=== PATIENT | female | born 1995 | race Caucasian/White ===

== ENCOUNTER 2017-06-26 20:19 | Emergency (ER) | payer MEDICAID ==
[2017-06-26 20:24] VITALS: BP 116/85; PULSE 106; RESP 16; TEMP 98.2; O2SAT 96
--- NOTE | 2017-06-26 20:32 | EDPHY ---
H & P Stated Complaint: L sided tooth pain Time Seen by Provider: 06/26/17 20:40 HPI/ROS: HPI: This is a 22-year-old female presents with Chief Complaint:L sided tooth pain Location: Left upper molar Quality: Pain Duration: 2 months Signs and Symptoms: No fever, no jaw swelling, no trismus, no ear pain, no difficulty swallowing, no difficulty talking,+ sensitivity to hot and cold foods Timing: Chronic Severity: Moderate Context: Patient recently moved to [facility] from [place] within the last 2 months. She reports that she has had left upper tooth crack that was recommend that she read obtain a root canal but she put it off. She now presents with complaints of left upper tooth pain that has worsened over the last 2 days, pain is now constant and severe. Still able to drink fluids and eat on the opposite side of her mouth. She has no dentist in the area. Positive tobacco user Modifying Factors: none Comment: ROS: see HPI Constitutional: No fever, no chills, no weight loss Eyes: No blurred vision Respiratory: No shortness of breath, no cough Cardiovascular: No chest pain Gastrointestinal: No nausea, no vomiting, no diarrhea Genitourinary: No dysuria Extremities: No myalgias Neurologic: No weakness, no numbness Skin: No rashes Hematologic: No bruising, no bleeding MEDICAL/SURGICAL/SOCIAL HISTORY: Medical history: ADD, transgender. Surgical history: Denies Social history: Recently moved from [place] CONSTITUTIONAL: Well-developed well-nourished nontoxic-appearing, awake and alert, no obvious distress HEENT: Atraumatic and normocephalic, PERRL, EOMI. Tympanic membranes clear. Oropharynx clear, tooth 16 visible blackening/decay; no jaw swelling. no exudate and moist pink mucosa. Airway patent. No lymphadenopathy. No meningismus. Cardiovascular: Normal S1/S2, regular rate, regular rhythm, without murmur rub or gallop. PULMONARY/CHEST: Symmetrical and nontender. Clear to auscultation bilaterally. Good air movement. No accessory muscle usage. ABDOMEN: Soft, nondistended, nontender, no rebound, no guarding, no peritoneal signs, no masses or organomegaly. No CVAT. EXTREMITIES: 2/2 pulses, strength 5/5, no deformities, no clubbing, no cyanosis or edema. NEUROLOGICAL: no focal neuro deficits. GCS 15. SKIN: Warm and dry, no erythema. no rash. Good capillary refill. Source: Patient Exam Limitations: No limitations - Personal History Current Tetanus/Diphtheria Vaccine: Yes Current Tetanus Diphtheria and Acellular Pertussis (TDAP): Yes - Medical/Surgical History Hx Asthma: No Hx Chronic Respiratory Disease: No Hx Diabetes: No Hx Cardiac Disease: No Hx Renal Disease: No Hx Cirrhosis: No Hx Alcoholism: No Hx HIV/AIDS: No Hx Splenectomy or Spleen Trauma: No Other PMH: add, transgender - Social History Smoking Status: Light smoker Constitutional: Initial Vital Signs Temperature (C) 36.8 C 06/26/17 20:21 Heart Rate 106 H 06/26/17 20:21 Respiratory Rate 16 06/26/17 20:21 Blood Pressure 116/85 H 06/26/17 20:21 O2 Sat (%) 96 06/26/17 20:21 O2 Delivery Mode Room Air Allergies/Adverse Reactions: No Known Allergies Allergy (Unverified 06/26/17 20:24) Home Medications: Medication Instructions Recorded Penicillin V Potassium [Penicillin 500 mg PO Q6 #28 tab 06/26/17 VK] Medical Decision Making Procedures: Procedure: Dental block Verbal consent was obtained from the patient. The #16 tooth was anesthetized in the usual fashion using 3 mL of bupivacaine 0.5% into the buccal mucosa. There were no deep structures involved. Patient tolerated the procedure well and localized immediate relief of pain. The procedure was performed by myself. ED Course/Re-evaluation: No signs of facial cellulitis/periapical abscess/dehydration Local dental block performed with complete relief of pain Given penicillin for antibiotic prophylaxis Advised to follow up with dentist MELISSA Patient's presentation, labs, plan of care were reviewed with primary supervising physician. Differential Diagnosis: Differential diagnosis includes but is not limited to tooth fracture, tooth subluxation, dental caries, periapical abscess. Departure - Departure Disposition: Home, Routine, Self-Care Clinical Impression: Odontalgia Condition: Good Instructions: Dental Caries (ED), Toothache (ED) Referrals: [facility],. [Clinic] - As per Instructions Tor Martin DMD [Doctor of Dental Surgery] - 2-3 days, call for appt. Prescriptions: Penicillin V Potassium [Penicillin VK] 500 mg PO Q6 #28 tab
[2017-06-26] MEDS ORDERED: PENICILLIN VK 250MG PREPACK#6 BTL TAKEHOME ONE (20:39)
== END 2017-06-26 21:13 | disposition home or self-care (01) ==
PROC: 3E0X3BZ Introduction of Anesthetic Agent into Cranial Nerves, Percutaneous Approach (ICD-10-PCS; principal; 2017-06-26)
DX: K08.89 Other specified disorders of teeth and supporting structures (principal); F17.200 Nicotine dependence, unspecified, uncomplicated

== ENCOUNTER 2017-08-18 13:36 | Emergency (ER) | payer MEDICAID ==
--- NOTE | 2017-08-18 14:14 | EDPHY ---
H & P Time Seen by Provider: 08/18/17 14:06 HPI/ROS: CHIEF COMPLAINT: Bilateral calf pain HISTORY OF PRESENT ILLNESS: The patient is a 22 y/o transgender female complaining of bilateral calf pain since this morning. The pain is moderate and increases with movement and with walking. The pain is greater in the left calf than the right. She is currently on Estradiol. Admits to occasional tobacco use. Denies history of DVT' s or PE's, very concerned about blood clot. Denies recent trauma or injury, shortness of breath, fever, numbness, paresthesia or other pertinent symptoms. REVIEW OF SYSTEMS: Aside from elements discussed in the HPI, a comprehensive 10-point review of systems was reviewed and is negative. Past Medical/Surgical History: Transgender, ADD Social History: Student at , lives in [place], occasional tobacco use Smoking Status: Current some day smoker Physical Exam: General Appearance: Alert, pleasant Eyes: Pupils equal and round ENT, Mouth: Mucous membranes moist Neck: Normal inspection Respiratory: Lungs are clear to auscultation Cardiovascular: Regular rate and rhythm Gastrointestinal: Abdomen is soft and non-tender Neurological: A&O, nonfocal exam Skin: Warm and dry Extremities: Bilateral calf tenderness without swelling, pedal pulses 2+ Psychiatric: Mood and affect normal Constitutional: Initial Vital Signs Temperature (C) 36.0 C 08/18/17 13:37 Heart Rate 106 H 08/18/17 13:37 Respiratory Rate 18 08/18/17 13:37 Blood Pressure 107/76 08/18/17 13:37 O2 Sat (%) 97 08/18/17 13:37 O2 Delivery Mode Room Air Allergies/Adverse Reactions: No Known Allergies Allergy (Unverified 06/26/17 20:24) Home Medications: Medication Instructions Recorded Dextroamphetamine Sulfate 08/18/17 Estradiol 08/18/17 Spironolactone 08/18/17 Medical Decision Making - Diagnostics Imaging Results: Imaging Impressions Extremity Venous Study 08/18/17 14:14 Impression: No evidence of deep vein thrombosis in the lower extremities. Findings called to the ER 08/18/2017 at 15:11. Imaging: Discussed imaging studies w/ magnesium mill operator Radiologist ED Course/Re-evaluation: The patient is a 22 y/o transgender female presenting with bilateral calf pain. She is quite concerned she has a DVT due to being on Estradiol. She has requested that a bilateral LE US be preformed. 1519: Spoke with radiologist, patient's US is negative for a DVT. 1524: Reassessed patient and discussed negative imaging findings. Return precautions provided; patient is comfortable with this plan. Differential Diagnosis: Differential diagnosis includes though it is not limited to cellulitis, superficial thrombophlebitis, DVT, muscular strain. Departure - Departure Disposition: Home, Routine, Self-Care Clinical Impression: Bilateral calf pain Condition: Good Instructions: Leg Pain (ED) Additional Instructions: Take ibuprofen, 600mg every 6-8 hours with food, as needed for pain. Follow up with your primary care physician in the next week for unimproved symptoms. Return to the emergency department if you develop chest pain, shortness of breath, fever, weakness, numbness or other worsening of your symptoms. Referrals: [facility],. [Clinic] - As per Instructions Report Scribed for: Delilah Campbell Report Scribed by: Staci Yarbrough Date of Report: 08/18/17 Time of Report: 14:15 Physician Review and Approval Statement: 08/18/17 14:15 Portions of this note were transcribed by a medical associate. I personally performed a history, physical exam, medical decision making, and confirmed accuracy of information the transcribed note.
[2017-08-18 15:27] VITALS: BP 101/63; PULSE 88; RESP 16; TEMP 97.5; O2SAT 96
== END 2017-08-18 15:35 | disposition home or self-care (01) ==
DX: M79.604 Pain in right leg (principal); M79.605 Pain in left leg; F17.200 Nicotine dependence, unspecified, uncomplicated

== ENCOUNTER 2017-08-25 23:41 | Emergency (ER) | payer MEDICAID ==
[2017-08-25 23:47] VITALS: BP 116/80; PULSE 103; RESP 16; TEMP 98.1; O2SAT 92
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
== END 2017-08-26 00:50 | disposition home or self-care (01) ==
DX: S06.0X1A Concussion with loss of consciousness of 30 minutes or less, initial encounter (principal); Z87.891 Personal history of nicotine dependence; V18.2XXA Unspecified pedal cyclist injured in noncollision transport accident in nontraffic accident, initial encounter; Y92.410 Unspecified street and highway as the place of occurrence of the external cause; Y93.55 Activity, bike riding

== ENCOUNTER 2017-09-05 21:10 | Emergency (ER) | payer OTHER, MEDICAID ==
--- NOTE | 2017-09-05 22:26 | EDPHY ---
H & P Stated Complaint: "I need STD testing" Pt denies symptoms HPI/ROS: Chief complaint: STD testing History of present illness: This is a 22-year-old transgender female who presents to the emergency department requesting STD testing. She states she needs testing for work. She recently had HIV testing which was negative. But she needs testing for everything else. She denies any recent exposure. She denies any signs or symptoms. - Personal History Current Tetanus/Diphtheria Vaccine: Yes Current Tetanus Diphtheria and Acellular Pertussis (TDAP): Yes - Medical/Surgical History Hx Asthma: No Hx Chronic Respiratory Disease: No Hx Diabetes: No Hx Cardiac Disease: No Hx Renal Disease: No Hx Cirrhosis: No Hx Alcoholism: No Hx HIV/AIDS: No Hx Splenectomy or Spleen Trauma: No Other PMH: add, transgender - Social History Smoking Status: Former smoker - Physical Exam Exam: General Appearance: Alert, nontoxic. Eyes: Pupils equal and round no injection. Respiratory: Chest is non tender, lungs are clear to auscultation. Cardiac: regular rate and rhythm Gastrointestinal: Abdomen is soft and non tender, no masses, bowel sounds normal. Musculoskeletal: Neck is supple and non tender. Extremities have full range of motion and are non tender. Skin: No rashes or lesions. Neurological: Alert and oriented x4. Constitutional: Initial Vital Signs Temperature (C) 36.5 C 09/05/17 21:19 Heart Rate 89 09/05/17 21:19 Respiratory Rate 16 09/05/17 21:19 Blood Pressure 112/93 H 09/05/17 21:19 O2 Sat (%) 99 09/05/17 21:19 O2 Delivery Mode Room Air Allergies/Adverse Reactions: No Known Allergies Allergy (Verified 09/05/17 21:22) Home Medications: Medication Instructions Recorded Estradiol 08/18/17 Spironolactone 08/18/17 Medical Decision Making ED Course/Re-evaluation: Patient is seen under the supervision of my secondary supervising physician Dr. Juan Miguel Leung. Patient presents to the emergency department requesting STD testing. No recent exposure or signs or symptoms. I have discussed I can order basic testing. The patient is responsible for following up on the results , patient voiced understanding and will contact the hospital in 2-3 days for results. Departure - Departure Disposition: Home, Routine, Self-Care Clinical Impression: Possible exposure to STD Condition: Good Instructions: Sexually Transmitted Diseases (ED) Additional Instructions: Please follow-up with a primary care doctor for recheck You were tested for gonorrhea, chlamydia, syphilis and herpes this evening. We did not test for HIV. You will need to follow up this week for the results of your test with this hospital. We recommend maintaining safe sex practices If you develops any concerning symptoms return to the emergency room Referrals: NONE *PRIMARY CARE P,. [Primary Care Provider] - As per Instructions [facility],. [Clinic] - As per Instructions
[2017-09-05 22:49] VITALS: BP 123/87; PULSE 91; RESP 18; TEMP 98.1; O2SAT 98
[2017-09-06 13:22] LABS: GC AMPLIFICATION GENPROBE NEGATIVE (NEGATIVE)
== END 2017-09-05 22:48 | disposition home or self-care (01) ==
DX: Z20.2 Contact with and (suspected) exposure to infections with a predominantly sexual mode of transmission (principal); Z87.891 Personal history of nicotine dependence
CPT/HCPCS: 86790-90

== ENCOUNTER 2017-09-15 21:16 | Emergency (ER) | payer MEDICAID ==
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
[2017-09-15] MEDS ORDERED: OXYCODONE/APAP 5/325MG PREPACK#4 BTL TAKEHOME ONE (21:55)
[2017-09-15] MEDS ORDERED: OXYCODONE/APAP 5/325 TAB PO ONE (21:55)
[2017-09-15 23:07] VITALS: BP 116/92; PULSE 89; RESP 16; TEMP 97.9; O2SAT 98
== END 2017-09-15 23:17 | disposition home or self-care (01) ==
LOC: EDUNIT#
DX: S32.512A Fracture of superior rim of left pubis, initial encounter for closed fracture (principal); Z87.891 Personal history of nicotine dependence; V18.9XXA Unspecified pedal cyclist injured in noncollision transport accident in traffic accident, initial encounter; Y92.410 Unspecified street and highway as the place of occurrence of the external cause; Y93.55 Activity, bike riding

== ENCOUNTER 2018-05-29 19:50 | Emergency (ER) | payer OTHER ==
--- NOTE | 2018-05-29 20:54 | EDPHY ---
HPI/HX/ROS/PE/MDM Narrative: CHIEF COMPLAINT: Lump on breast HPI: The patient is a 23 y/o transgender [id number] currently on estradiol therapy complaining of a lump on her left breast that she noticed last night. She describes it as "hard and not centered and rooted." She denies any other symptoms including nipple discharge, redness, warmth, or fever. No recent changes in estradiol dosing. REVIEW OF SYSTEMS: A comprehensive 10 system review of systems is otherwise negative aside from elements mentioned in the history of present illness. PMH: ADD; transgender on estrogen therapy SOCIAL HISTORY: Lives in [place]. [employer] student. PHYSICAL EXAM: General:Patient is alert, in no acute distress. ENT:Eyes are normal to inspection. ENT inspection normal. Neck: Normal inspection. Full range of motion. Respiratory:No respiratory distress. Breath sounds normal bilaterally. Cardiovascular: Regular rate and rhythm. Strong peripheral pulses. Normal cap refill. Chest: No redness, area of induration or fluctuance, or tenderness. Abdomen:The abdomen is nontender to palpation. There are no peritoneal signs. Back: Normal to inspection. No tenderness to palpation. Skin: Normal color. No rash. Warm and dry. Extremities: Normal appearance. Full range of motion. Neuro: Oriented x3. Normal motor function. Normal sensory function. ED Course: This is a 23 y/o transgender female who presents for evaluation of a lump on her left breast. No significant lump noted. No area of fluctuance, warmth, erythema, or induration. No findings requiring surgical evaluation tonight or other intervention. Patient will be discharged with referral to surgeon for follow up. Return precautions discussed. She is comfortable with this plan. General Time Seen by Provider: 05/29/18 20:28 Initial Vital Signs: Initial Vital Signs Temperature (C) 36.7 C 05/29/18 20:10 Heart Rate 104 H 05/29/18 20:10 Respiratory Rate 19 05/29/18 20:10 Blood Pressure 106/77 05/29/18 20:10 O2 Sat (%) 97 05/29/18 20:10 O2 Delivery Mode Room Air Allergies/Adverse Reactions: No Known Allergies Allergy (Verified 09/15/17 21:38) Home Medications: Medication Instructions Recorded Estradiol 08/18/17 Spironolactone 08/18/17 oxyCODONE/APAP 5/325 [Percocet] 1 - 2 tab PO Q4-6PRN PRN #19 tab 09/15/17 Departure - Departure Disposition: Home, Routine, Self-Care Clinical Impression: Lump of breast, left Condition: Good Instructions: Estradiol (By mouth) Additional Instructions: Follow up with surgeon in the next week for reevaluation. Referrals: Arturo Shay MD [Medical Doctor] - As per Instructions Report Scribed for: Solis Yang Report Scribed by: April Hernandez Date of Report: 05/29/18 Time of Report: 21:18 Physician Review and Approval Statement: Portions of this note were transcribed by an ED scribe. I personally performed the history, physical exam, and medical decision making; and confirm the accuracy of the information in the transcribed note.
[2018-05-29 21:11] VITALS: BP 112/78
== END 2018-05-29 21:11 | disposition home or self-care (01) ==
DX: N63.20 Unspecified lump in the left breast, unspecified quadrant (principal)

== ENCOUNTER 2018-07-11 12:15 | Day surgery (SDC) | payer OTHER, MEDICAID ==
[2018-07-11] MEDS ORDERED: LIDOCAINE 1% 2 ML INJ ID PRN (12:26)
[2018-07-11] MEDS ORDERED: LR 1,000 ML IV ONE (12:26)
--- NOTE | 2018-07-11 13:36 | PDANEPAE ---
ANE History of Present Illness weight loss ANE Past Medical History - Cardiovascular History Hx Hypertension: No Hx Arrhythmias: No Hx Chest Pain: No Hx Coronary Artery / Peripheral Vascular Disease: No Hx CHF / Valvular Disease: No Hx Palpitations: No - Pulmonary History Hx COPD: No Hx Asthma/Reactive Airway Disease: No Hx Recent Upper Respiratory Infection: No Hx Oxygen in Use at Home: No Hx Sleep Apnea: No Sleep Apnea Screening Result - Last Documented: Negative - Neurologic History Hx Cerebrovascular Accident: No Hx Seizures: No Hx Dementia: No - Endocrine History Hx Diabetes: No Hypothyroid: No Hyperthyroid: No Obesity: no - Renal History Hx Renal Disorders: No - Liver History Hx Hepatic Disorders: No - Neurological & Psychiatric Hx Hx Neurological and Psychiatric Disorders: No - Cancer History Hx Cancer: No - Congenital Disorder History Hx Congenital Disorders: No - GI History GERD: no Hx Gastrointestinal Disorders: Yes Gastrointestinal History Comment: PREV GASTRITIS. WEIGHT LOSS. 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 - Chronic Pain History Chronic Pain: No - Surgical History Prior Surgeries: ONLY PREV COLONOSCOPY YRS AGO ANE Review of Systems Review of systems is: negative Review of Systems: - Exercise capacity Exercise capacity: >=4 METS METS (RN): 6 METS ANE Patient History - Allergies Allergies/Adverse Reactions: No Known Allergies Allergy (Verified 09/15/17 21:38) - Home Medications Home medications: home medication list seen and reviewed Home Medications: Estradiol BID 08/18/17 [Last Taken Unknown] Spironolactone BID 08/18/17 [Last Taken Unknown] Ibuprofen DAILY 07/07/18 [Last Taken Unknown] Progesterone HS 07/07/18 [Last Taken Unknown] - NPO status NPO Status: no food or drink >8 hours NPO Since - Liquids (Date): 07/11/18 NPO Since - Liquids (Time): 02:00 NPO Since - Solids (Date): 07/10/18 NPO Since - Solids (Time): 00:59 - Anes Hx Anes Hx: no prior problems - Smoking Hx Smoking Status: Former smoker - Family Anes Hx Family Hx Anesthesia Complications: NEG ANE Labs/Vital Signs - Vital Signs Vital Signs: reviewed preoperatively; see RN documention for details Blood Pressure: 103/69 Heart Rate: 88 Respiratory Rate: 21 O2 Sat (%): 97 Height: 168.91 cm Weight: 49.895 kg ANE Physical Exam - Airway Neck exam: FROM Mallampati Score: Class 1 Mouth exam: normal dental/mouth exam - Pulmonary Pulmonary: no respiratory distress - Cardiovascular Cardiovascular: regular rate and rhythym - ASA Status ASA Status: II ANE Anesthesia Plan Anesthesia Plan: GA with mask
[2018-07-11] MEDS ORDERED: PROPOFOL 200 MG/20 ML VIAL ONE ×2 (13:50)
--- NOTE | 2018-07-11 13:51 | PDGENHP ---
History & Physical Chief Complaint: Nausea History of Present Illness: 22 yo female with epigastric pain and nausea Pertinent Past, Social, Family History: GERD. SH: Nicotine by VAPE Relevant Physical Exam: NAD. CTA B/L. RRR without m/r/g. GI soft. NABS. NT/ND Cardiorespiratory Assessment: ASA I. EGD with propofol
--- NOTE | 2018-07-11 14:18 | GIREPORT ---
Formerly [facility] Surgical Services - Endoscopy Department Patient Name: Genevieve Lazo Procedure Date: 07/11/2018 1:55 PM Patient Type: Outpatient Attending MD/ ER Physician: Solis Herbert MD Procedure: Upper GI endoscopy Indications: Epigastric abdominal pain, Heartburn, Nausea, Weight loss Providers: Solis Herbert MD Medicines: Propofol per Anesthesia Complications: No immediate complications. Description of Procedure: After obtaining informed consent, the endoscope was passed under direct vision. Throughout the procedure, the patient's blood pressure, pulse, and oxygen saturations were monitored continuously. The Endoscope was intro duced through the mouth, and advanced to the second part of duodenum. [facility] er GI endoscopy was accomplished without difficulty. The patient tolerated th e procedure well. Findings: The esophagus was normal. The stomach was normal. Biopsies were taken with a cold forceps for histology. The examined duodenum was normal. Biopsies for histology were taken wit h a cold forceps for evaluation of celiac disease. Estimated Blood Loss: Estimated blood loss: none. Post Op Diagnosis: - Normal esophagus. - Normal stomach. Biopsied. - Normal examined duodenum. Biopsied. - No clear endoscopic cause for her current symptoms. Recommendation: - Await pathology results. - Will consider a gluten free diet if the biopsies suggest features of celiac sprue. - Will treat H.pylori if found on the histology. - Return to GI clinic after studies are complete. - Resume previous diet. - Continue present medications. - Patient has a contact number available for emergencies. The signs and symptoms of potential delayed complications were discussed with the pat ient. Return to normal activities tomorrow. Written discharge instructions we re provided to the patient. - Thank you for allowing me to be involved in the care of your patient. Attending Participation: I personally performed the entire procedure without the assistance of a fellow, resident or surg ical syrup mixer assistant. Solis Herbert MD Solis Herbert MD 07/11/2018 2:18:37 PM This report has been signed electronicallyDavid MD Piedad Number of Addenda: 0 Note Initiated On: 07/11/2018 1:55 PM [email or web address]
--- NOTE | 2018-07-11 14:26 | POSTANESTH ---
Post Anesthetic Evaluation Cardiovascular Status: Normal, Stable Respiratory Status: Normal, Stable Level of Consciousness/Mental Status: Can Participate in Eval Pain Control: Adequate, Prn Tx Ordered Nausea/Vomiting Control: Adequate, Prn Tx Ordered Complications Possibly Related to Anesthesia: None Noted
[2018-07-11 15:15] VITALS: BP 94/52
== END 2018-07-11 15:29 | disposition home or self-care (01) ==
LOC: FSGY 12:15
PROVIDERS: ATTEND Internal Medicine Gastroenterology
PROC: 0DB98ZX Excision of Duodenum, Via Natural or Artificial Opening Endoscopic, Diagnostic (ICD-10-PCS; principal; 2018-07-11 13:45)
PROC: 0DB68ZX Excision of Stomach, Via Natural or Artificial Opening Endoscopic, Diagnostic (ICD-10-PCS; principal; 2018-07-11 13:45)
DX: K29.70 Gastritis, unspecified, without bleeding (principal); R63.4 Abnormal weight loss; R10.13 Epigastric pain; R11.0 Nausea; K21.9 Gastro-esophageal reflux disease without esophagitis; F17.290 Nicotine dependence, other tobacco product, uncomplicated; F64.8 Other gender identity disorders
CPT/HCPCS: J2704

== ENCOUNTER 2018-08-01 05:36 | Observation (INO) | payer OTHER, MEDICAID | END 2018-08-02 13:45 | disposition home or self-care (01) | LOC: F2W 09:40 ==

== ENCOUNTER 2018-08-23 11:02 | Emergency (ER) | payer OTHER, MEDICAID ==
--- NOTE | 2018-08-23 12:28 | EDPHY ---
General - History Smoking Status: Current every day smoker Time Seen by Provider: 08/23/18 11:58 Narrative: CLINICAL IMPRESSION: Subjective palpitations ASSESSMENT/PLAN: 23-year-old transgender female presents to the emergency department complaining of intermittent palpitations and trouble sleeping. Patient was admitted to this hospital earlier this month for chest pain, shortness of breath and palpitations after she was found to be intermittently hypoxic. She had a comprehensive evaluation including cardiac enzymes, CT a chest, transthoracic echocardiogram, and serial cardiac enzymes. She had a reassuring evaluation, was encouraged to follow up with her primary care provider and Cardiology. Patient states she saw her primary care doctor today who advised she go to a sleep clinic. She reports trouble sleeping because she is having "shaking episodes". She was recently started on Lexapro but states symptoms started prior to this. Vital signs stable, EKG normal sinus rhythm with a rate of 57, no acute ST or T-wave changes, reviewed with Dr. Waters. Labs reassuring, no evidence of hypo or hyper thyroidism, anemia, electrolyte imbalance, renal insufficiency. Patient denies illicit drug and alcohol abuse. I encouraged to follow back with her primary care doctor and I did provide cardiology referral. Warning signs return to ED sooner alignment discharge. DIFFERENTIAL DX: Differential diagnosis includes but not limited to myocardial ischemia, pulmonary embolus, chest wall pain, pleural inflammation, musculoskeletal chest wall pain, aortic aneurysm, and pulmonary infectious causes. ED PROCEDURES: See lab and/or imaging results below ED COURSE: Labs reviewed with the patient. EKG without abnormality, discussed with Dr. Waters. Patient appears well, nontoxic, stable vital signs in the ED. I do not feel she requires any additional emergent imaging or evaluation at this time. Outpatient referrals given CHIEF COMPLAINT: Palpitations, GERD symptoms, trouble sleeping, nystagmus, dizziness HPI: 23-year-old transgender female presents to the emergency department with complaints of intermittent palpitations, difficulty sleeping as though she is "having shocking/S shaking episodes". She was apparently admitted to this hospital earlier this month for similar symptoms, found to be hypoxic in the ED. She had comprehensive evaluation including CT scans, echocardiogram, EKG and lab work. She was told nothing was wrong. She was discharged with primary care doctor. She saw primary care today and was told she had to go to sleep clinic. She is currently undergoing hormone therapy with OBGYN. Her medications have been unchanged. She also follows with Psychiatry and was recently started on Lexapro. She denies any illicit drugs and alcohol. PAST MEDICAL HISTORY: Trans gender, depression See nurse/triage notes for additional history if applicable Pertinent Past Surgical History: None reported Family History: None reported Social History: Smokes cigarettes, on estradiol, transgender REVIEW OF SYSTEMS: All other systems negative Constitutional: No fever, no chills, appetite change. Eyes: No discharge, vision change, patient reports nystagmus ENT: No sore throat, congestion, ear pain. Cardiovascular: No chest pain, positive for palpitations. Respiratory: No cough, no shortness of breath. Gastrointestinal: No abdominal pain, no vomiting, diarrhea. Musculoskeletal: No back pain, joint swelling, joint pain, myalgias. Skin: No rashes, color change. Neurological: No headache, dizziness, weakness. PHYSICAL EXAM: General Appearance: Alert, oriented, appropriate, chance gender female, cooperative, NAD, well hydrated, non-toxic appearing, VSS, no hypoxia, laying comfortably in the bed, appears in no distress HEENT: TMs are clear bilaterally no perforation or FB, no injection, no evidence of serous or mucopurulent otitis. Oropharynx clear is no erythema or exudates, no tonsillar hypertrophy or asymmetry. Dentition without abnormality. Eyes: PERRLA, no acute vision change, no nystagmus, swelling, discharge, pain or photosensitivity. Conjunctiva pink, no pallor or injection Neck: Supple, nontender, no lymphadenopathy, no midline pain, FROM, no meningismus. No thyroid mass Respiratory: There are no retractions, lungs are clear to auscultation. Cardiac: Regular rate and rhythm, no murmurs or gallops. Gastrointestinal: Abdomen is soft, nontender, bowel sounds normal, no masses/ hernia, no rigidity, guarding or focal peritoneal findings. Neurological: [ Alert and oriented x 3, CN 2-12 grossly intact Skin: Warm, dry, no rashes, no nodules on palpation. Musculoskeletal: Extremities are symmetrical, full range of motion, no tenderness, deformity, swelling, or erythema. Psychiatric: Patient is oriented X 3, there is no agitation. MEDICAL DECISION MAKING: Patient was seen independently. Secondary supervising physician at time of evaluation was Dr Waters. Diagnosis: Subjective palpitations . New, requires workup Summary: See Assessment and Plan for summary of ED visit Clinical lab tests: ordered / reviewed. Independent visualization of images, tracing, or specimens: Not obtained. Decision to obtain medical records or history from someone other than the patient: No Review / Summarize previous medical records: Reviewed recent ED notes and hospital admission Discussed patient with another provider: No Patient Progress: Stable. (Matthew Duque) Medical Decision Making: The patient was evaluated and managed by the physician operations manager assistant. I have reviewed this chart and I agree with the findings and plan of care as documented , as indicated by my signature. I am the secondary supervising physician. ( Nyla Waters) - Diagnostics EKG Interpretation: 12 lead EKG is interpreted in [place] by emergency department physician. (Nyla Waters) - Objective Vital Signs: Initial Vital Signs Temperature (C) 36.6 C 08/23/18 11:04 Heart Rate 83 08/23/18 11:04 Respiratory Rate 16 08/23/18 11:04 Blood Pressure 112/79 08/23/18 11:04 O2 Sat (%) 95 08/23/18 11:04 O2 Delivery Mode Room Air Allergies/Adverse Reactions: No Known Allergies Allergy (Verified 08/01/18 08:29) Home Medications: Medication Instructions Recorded Estradiol [Estradiol 1 MG (*)] 2 mg PO BID 08/18/17 Spironolactone 100 mg PO BID 08/18/17 Ibuprofen [Motrin (*)] 200 mg PO Q6H 07/07/18 Progesterone, Micronized 100 mg PO HS 07/07/18 [Progesterone] Acetaminophen [Tylenol 325mg (*)] 650 mg PO Q6 08/01/18 Fluticasone Propionate [24 Hour 1 spray EACHNARE DAILY 08/01/18 Allergy] Lexapro 08/23/18 Laboratory Results: Laboratory Results 08/23/18 13:00 08/23/18 13:00 Departure - Departure Disposition: Home, Routine, Self-Care Clinical Impression: Intermittent palpitations Condition: Good Instructions: Heart Palpitations (ED) Additional Instructions: DISCHARGE INSTRUCTIONS FROM YOUR DOCTOR Thank you for visiting our emergency department today. Please keep in mind that discharge from the emergency department does not mean that there is nothing wrong - it simply means that we have not identified an emergency condition that requires further evaluation or treatment in the hospital. You should always plan to follow up with primary care for re-evaluation of your condition in the next 2-3 days. If you have been referred to a specialist, please call as soon as possible (today or tomorrow) to schedule your follow up appointment at the appropriate time. REPEAT LABORATORY WORK TODAY SHOWS NO ABNORMALITIES, INCLUDING NORMAL ELECTROLYTES, NORMAL THYROID FUNCTIONS, NORMAL KIDNEY FUNCTIONS, AND NO ANEMIA. YOU HAD A THOROUGH EVALUATION IN THE HOSPITAL INCLUDING CT SCAN OF HER CHEST, EKG, AND A NORMAL ECHOCARDIOGRAM. WE DO NOT FEEL YOU REQUIRE ANY ADDITIONAL EMERGENT IMAGING TODAY. WE RECOMMEND FOLLOWING UP WITH YOUR PSYCHIATRIST, PRIMARY CARE AND CARDIOLOGY. PLEASE MAKE AN APPOINTMENT THIS WEEK, LET THEM KNOW YOU WERE IN THE ER. REFERRALS WERE GIVEN. RETURN TO THE EMERGENCY DEPARTMENT FOR WORSENING SYMPTOMS, FAINTING EPISODES, FEVER, OR ANY OTHER CONCERNS. People present with illnesses and injuries in different ways, and it is always possible that we have missed something. You may always return for re-evaluation if symptoms worsen or if they are not improving or if you develop new/different symptoms. Again, thank you for choosing our emergency department. We hope that you feel better. Referrals: NONE *PRIMARY CARE P,. [Primary Care Provider] - As per Instructions Alejo Duong MD [Medical Doctor] - 1-2 days without fail
[2018-08-23 13:09] LABS: PLATELET COUNT 238 10^3/uL (150-400)
[2018-08-23 13:38] VITALS: BP 110/78
--- NOTE | 2018-08-23 16:05 | CPEKG ---
Test Reason : OPEN Blood Pressure : / mmHG Vent. Rate : 057 BPM Atrial Rate : 000 BPM P-R Int : 130 ms QRS Dur : 080 ms QT Int : 431 ms P-R-T Axes : 021 087 071 degrees QTc Int : 420 ms Sinus rhythm Confirmed by Nyla Waters ([id number]) on 08/23/2018 4:04:48 PM Referred By: Nyla Waters Confirmed By:Nyla Waters
== END 2018-08-23 14:06 | disposition home or self-care (01) ==
DX: R00.2 Palpitations (principal); F32.9 Major depressive disorder, single episode, unspecified; F17.200 Nicotine dependence, unspecified, uncomplicated; Z79.899 Other long term (current) drug therapy

== ENCOUNTER 2018-10-07 18:22 | Emergency (ER) | payer OTHER, MEDICAID ==
--- NOTE | 2018-10-07 20:38 | EDPHY ---
H & P Time Seen by Provider: 10/07/18 19:42 HPI/ROS: CHIEF COMPLAINT: Headache HISTORY OF PRESENT ILLNESS: The patient is a 23-year-old female who presents emergency department with headache, hand and arm tingling, chest pain x1 month. The patient states she was admitted to the hospital recently and had a cardiac workup which was negative. Patient was concerned because she has had ongoing bilateral arm tingling. Patient states she is really here for a referral for Neurology. Patient denies fever, no cough. No focal weakness or numbness. No nausea vomiting. REVIEW OF SYSTEMS: 10 systems were reveiwed and are negative with the exception of the elements mentioned in the history of present illness. Past Medical/Surgical History: ADD, transgender Smoking Status: Current every day smoker Physical Exam: Vitals noted GENERAL: Well-appearing, in no acute distress, alert. HEENT: Eyes normal to inspection, normal pharynx, no signs of dehydration. NECK: Normal, supple. RESPIRATORY: Clear to auscultation bilaterally, no rales, rhonchi or wheezing. CVS: Regular rate and rhythm, no rubs, murmurs, or gallops. ABDOMEN: Soft, nontender, nondistended, no organomegaly. BACK: Normal to inspection, no CVA tenderness. SKIN: Normal color, no rash, warm, dry. No pallor. EXTREMITIES: No pedal edema, no calf tenderness, no Homans sign or cords, no joint swelling. NEURO/PSYCH: Higher functions: Alert and Oriented x3. Normal speech and cognition. Normal mood and affect. Cranial nerves: Normal as tested. Cerebellar: Normal as tested. Good finger to nose, good [id number], normal gait. Peripheral exam: Normal motor exam. Normal sensation. Normal reflexes. Constitutional: Initial Vital Signs Temperature (C) 36.7 C 10/07/18 18:34 Heart Rate 97 10/07/18 18:34 Respiratory Rate 16 10/07/18 18:34 Blood Pressure 107/66 10/07/18 18:34 O2 Sat (%) 97 10/07/18 18:34 O2 Delivery Mode Room Air Allergies/Adverse Reactions: No Known Allergies Allergy (Verified 08/01/18 08:29) Home Medications: Medication Instructions Recorded Estradiol [Estradiol 1 MG (*)] 2 mg PO BID 08/18/17 Spironolactone 100 mg PO BID 08/18/17 Ibuprofen [Motrin (*)] 200 mg PO Q6H 07/07/18 Progesterone, Micronized 100 mg PO HS 07/07/18 [Progesterone] Acetaminophen [Tylenol 325mg (*)] 650 mg PO Q6 08/01/18 Fluticasone Propionate [24 Hour 1 spray EACHNARE DAILY 08/01/18 Allergy] Lexapro 08/23/18 Medical Decision Making ED Course/Re-evaluation: I discussed possible etiologies with the patient. I answered all of her questions. Patient was given referral to Neurology. She is given warnings prior to leaving. Differential Diagnosis: My differential includes but is not limited to headache, migraine, subarachnoid hemorrhage, subdural hematoma epidural hematoma, CVA, dissection, sinusitis Departure - Departure Disposition: Home, Routine, Self-Care Clinical Impression: Headache Qualifiers: Headache type: unspecified Headache chronicity pattern: acute headache Intractability: not intractable Qualified Code(s): R51 - Headache Condition: Good Instructions: Acute Headache (ED) Additional Instructions: Return with worsening symptoms or any other concerns Referrals: Melo Coulter MD [Medical Doctor] - 2-3 days, if not improved
[2018-10-07 20:52] VITALS: BP 118/69
== END 2018-10-07 20:51 | disposition home or self-care (01) ==
DX: R51 Headache (principal); R07.9 Chest pain, unspecified; R20.2 Paresthesia of skin; F17.200 Nicotine dependence, unspecified, uncomplicated

== ENCOUNTER 2018-10-09 02:00 | Emergency (ER) | payer OTHER, MEDICAID ==
--- NOTE | 2018-10-09 02:04 | EDPHY ---
H & P Time Seen by Provider: 10/09/18 02:03 HPI/ROS: HPI CHIEF COMPLAINT: Headache x1 month. HISTORY OF PRESENT ILLNESS: Patient is a 23-year-old male to female transgender , presents emergency room with a headache. She reports to me that she has had headache for 1 month. However over the last 48 hr has gotten worse. She describes as a band circumferential around her head. She describes as a vice drawing instructor around her head. No neck pain, denies fever, denies stiff neck, denies visual disturbance, denies double vision. Denies chest pain or shortness of breath. States no history of migraine headaches but has had a rather ongoing headache for month. Now describes a band circumferential around her head. States she was seen in the emergency room yesterday. Did take ibuprofen yesterday at home. With minimal improvement. Denies recent illness or fever. Denies neck pain or neck stiffness. Denies sudden-onset headache. Past Medical History: History of ADD, trans gender Past Surgical History: No recent surgery Social History: Denies drugs alcohol tobacco. Family History: Noncontributory ROS REVIEW OF SYSTEMS: 10 Systems were reviewed and negative with the exception of the elements mentioned in the history of present illness. Exam Constitutional triage nursing summary reviewed, vital signs reviewed, awake/ alert. Vital signs stable. GCS 15, Eyes normal conjunctivae and sclera, EOMI, PERRLA. HENT normal inspection, atraumatic, moist mucus membranes, no epistaxis, neck supple/ no meningismus, no raccoon eyes. Respiratory clear to auscultation bilaterally, normal breath sounds, no respiratory distress, no wheezing. Cardiovascular rate normal, regular rhythm, no murmur, no edema, distal pulses normal. Gastrointestinal soft, non-tender, no rebound, no guarding, normal bowel sounds, no distension, no pulsatile mass. Genitourinary no CVA tenderness. Musculoskeletal no midline vertebral tenderness, full range of motion, no calf swelling, no tenderness of extremities, no meningismus, good pulses, neurovascularly intact. Skin pink, warm, & dry, no rash, skin atraumatic. Neurologic normal neurological exam, no focal neuro deficit on exam, awake, alert and oriented x 3, AAOx3, moves all 4 extremities equally, motor intact, sensory intact, CN II-XII intact, normal cerebellar, normal vision, normal speech. Psychiatric normal mood/affect. Heme/Lymph/Immune no lymphadenopathy. Differential Diagnosis: Includes but is not limited to in a particular order migraine headache, tension headache, cluster headache, intracranial bleed, meningitis, encephalitis, venous clot. Medical Decision Making: Plan for this patient IV establishment, basic labs, CT head imaging without contrast due to headache, migraine cocktail, clinically on exam her neurological exam is unremarkable. She describes a bandlike headache around her head. Appears to be migraine in nature. Will treat with a migraine cocktail and re-evaluate. I think encephalitis meningitis is very unlikely. Re-evaluation: CT scan head without contrast negative for acute intracranial bleed. This was faxed to me by direct Radiology 3:40 a.m.. [id number]: Patient re-evaluated this time she received a migraine cocktail and states this greatly improved her headache. She reports to me her headache is almost completely gone. On re-examination she appears well nontoxic no acute distress. Vital signs are stable. She is afebrile. Her neurological exam is unremarkable. Her CT scan of her head without contrast does not show any evidence of bleed or mass. She would like to be discharged and is comfortable discharge planning. I encouraged patient to follow up with primary care doctor/neurologist, and additionally return to the emergency room if there is worsening symptoms including worsening headache, fever, vomiting. I think meningitis encephalitis is unlikely given no neck pain, no fever, normal neurological exam and nontoxic-appearing. Return precautions discussed with the patient she is comfortable discharge. Return if worse. Source: Patient - Medical/Surgical History Hx Asthma: No Hx Chronic Respiratory Disease: No Hx Diabetes: No Hx Cardiac Disease: No Hx Renal Disease: No Hx Cirrhosis: No Hx Alcoholism: No Hx HIV/AIDS: No Hx Splenectomy or Spleen Trauma: No Other PMH: add, transgender. - Social History Smoking Status: Current every day smoker Constitutional: Initial Vital Signs Temperature (C) 36.4 C 10/09/18 02:04 Heart Rate 87 10/09/18 02:04 Respiratory Rate 16 10/09/18 02:04 Blood Pressure 113/82 H 10/09/18 02:04 O2 Sat (%) 94 10/09/18 02:04 O2 Delivery Mode Room Air Allergies/Adverse Reactions: No Known Allergies Allergy (Verified 08/01/18 08:29) Home Medications: Medication Instructions Recorded Spironolactone 100 mg PO BID 08/18/17 Medical Decision Making - Data Points Laboratory Results: Laboratory Results 10/09/18 03:10 10/09/18 03:10 10/09/18 10/09/18 03:10 03:10 WBC 15.52 10^3/uL H 10^3/uL (3.80-9.50) RBC 4.72 10^6/uL 10^6/uL (4.18-5.33) Hgb 14.5 g/dL g/dL (12.6-16.3) Hct 42.7 % % (38.0-47.0) MCV 90.5 fL fL (81.5-99.8) MCH 30.7 pg pg (27.9-34.1) MCHC 34.0 g/dL g/dL (32.4-36.7) RDW 11.1 % L % (11.5-15.2) Plt Count 261 10^3/uL 10^3/uL (150-400) MPV 9.5 fL fL (8.7-11.7) Neut % (Auto) 73.2 % % (39.3-74.2) Lymph % (Auto) 17.8 % % (15.0-45.0) Dare % (Auto) 6.8 % % (4.5-13.0) Eos % (Auto) 1.5 % % (0.6-7.6) Baso % (Auto) 0.4 % % (0.3-1.7) Nucleat RBC Rel Count 0.0 % % (0.0-0.2) Absolute Neuts (auto) 11.38 10^3/uL H 10^3/uL (1.70-6.50) Absolute Lymphs (auto) 2.76 10^3/uL 10^3/uL (1.00-3.00) Absolute Monos (auto) 1.05 10^3/uL H 10^3/uL (0.30-0.80) Absolute Eos (auto) 0.23 10^3/uL 10^3/uL (0.03-0.40) Absolute Basos (auto) 0.06 10^3/uL 10^3/uL (0.02-0.10) Absolute Nucleated RBC 0.00 10^3/uL 10^3/uL (0-0.01) Immature Gran % 0.3 % % (0.0-1.1) Immature Gran # 0.04 10^3/uL 10^3/uL (0.00-0.10) Sodium 137 mEq/L mEq/L (135-145) Potassium 4.3 mEq/L mEq/L (3.5-5.2) Chloride 105 mEq/L mEq/L (97-110) Carbon Dioxide 24 mEq/l mEq/l (22-31) Anion Gap 8 mEq/L mEq/L (6-14) BUN 18 mg/dL mg/dL (7-23) Creatinine 0.8 mg/dL mg/dL (0.6-1.0) Estimated GFR > 60 Glucose 85 mg/dL mg/dL (70-100) Calcium 9.3 mg/dL mg/dL (8.5-10.4) Medications Given: Discontinued Medications Dexamethasone (Decadron Injection) 10 mg IVP EDNOW ONE Stop: 10/09/18 02:51 Last Admin: 10/09/18 03:02 Dose: 10 mg Diphenhydramine HCl (Benadryl Injection) 50 mg IVP EDNOW ONE Stop: 10/09/18 02:51 Last Admin: 10/09/18 03:06 Dose: 50 mg Sodium Chloride (Ns) 1,000 mls @ 0 mls/hr IV ONCE ONE; Wide Open PRN Reason: Protocol Stop: 10/09/18 02:51 Last Admin: 10/09/18 03:02 Dose: 1,000 mls Ketorolac Tromethamine (Toradol) 30 mg IVP EDNOW ONE Stop: 10/09/18 02:51 Last Admin: 10/09/18 03:07 Dose: 30 mg Metoclopramide HCl (Reglan Injection) 10 mg IVP EDNOW ONE Stop: 10/09/18 02:51 Last Admin: 10/09/18 03:04 Dose: 10 mg Departure - Departure Disposition: Home, Routine, Self-Care Clinical Impression: Headache Qualifiers: Headache type: unspecified Headache chronicity pattern: acute headache Intractability: not intractable Qualified Code(s): R51 - Headache Condition: Good Instructions: Acute Headache (ED) Additional Instructions: 1. Rest and stay well-hydrated 2. Return to the emergency room if you develop a worsening headache, vomiting, not doing well. 3. Follow up with your primary care doctor. Referrals: NONE *PRIMARY CARE P,. [Primary Care Provider] - As per Instructions Melo Coulter MD [Medical Doctor] - As per Instructions
[2018-10-09] MEDS ORDERED: METOCLOPRAMIDE 10 MG/2 ML VIAL IVP ONE (02:50)
[2018-10-09] MEDS ORDERED: NS 1,000 ML IV ONE (02:50)
[2018-10-09] MEDS ORDERED: DEXAMETHASONE 10 MG/ML VIAL IVP ONE (02:50)
[2018-10-09] MEDS ORDERED: KETOROLAC 30 MG/1 ML SDV IVP ONE (02:50)
[2018-10-09 03:22] LABS: PLATELET COUNT 261 10^3/uL (150-400)
[2018-10-09 06:15] VITALS: BP 108/68
== END 2018-10-09 06:15 | disposition home or self-care (01) ==
DX: R51 Headache (principal); E86.9 Volume depletion, unspecified
CPT/HCPCS: 96374; J1100; J1200; J1885; J2765

== ENCOUNTER 2018-10-19 02:33 | Emergency (ER) | payer OTHER, MEDICAID ==
[2018-10-19 02:38] VITALS: BP 118/64
--- NOTE | 2018-10-19 02:54 | EDPHY ---
H & P Stated Complaint: generalized body aches/pain,"feels like i ran a marathon type of pain" x1yr Time Seen by Provider: 10/19/18 02:42 HPI/ROS: Chief Complaint: Body aches HPI: 23-year-old presenting with generalized body aches which been going on for the last year. Patient has been admitted for chest pain workups. Patient has also had multiple visits for generalized pain complaints. Had CT scans of the head. Patient has an appointment with Neurology on October 30. Been getting daily body aches and generalized pain. Is not taking any medicine for this recently. Does take some ibuprofen daily. No fevers or chills. No cough. No numbness or weakness. No leg pain or swelling. No chest pain or shortness of breath. Pain is just generalized ache with some fatigue. Symptoms been going on for weeks to months. No acute changes tonight other than the patient was having difficulty sleeping. ROS: 10 systems were reviewed and were negative except those elements noted in the HPI. PMH: Denies Social History: No smoking, no alcohol, no recreational drug use Family History: non-contributory Physical Exam: Gen: Awake, Alert, No Distress HEENT: Nose: no rhinorrhea Eyes: PERRLA, EOMI Mouth: Moist mucosa Neck: Supple, no JVD Chest: nontender, lungs clear to auscultation Heart: S1, S2 normal, no murmur Abd: Soft, non-tender, no guarding Back: no CVA tenderness, no midline tenderness Ext: no edema, non-tender Skin: no rash Neuro: CN II-XII intact, Sensation grossly intact, Strength 5/5 in bilateral upper and lower extremities - Personal History LMP (Females 10-55): Unknown Current Tetanus Diphtheria and Acellular Pertussis (TDAP): Yes - Medical/Surgical History Hx Asthma: No Hx Chronic Respiratory Disease: No Hx Diabetes: No Hx Cardiac Disease: No Hx Renal Disease: No Hx Cirrhosis: No Hx Alcoholism: No Hx HIV/AIDS: No Hx Splenectomy or Spleen Trauma: No Other PMH: add, transgender. - Social History Smoking Status: Current every day smoker Constitutional: Initial Vital Signs Temperature (C) 36.8 C 10/19/18 02:35 Heart Rate 87 10/19/18 02:35 Respiratory Rate 17 10/19/18 02:35 Blood Pressure 118/64 10/19/18 02:35 O2 Sat (%) 96 10/19/18 02:35 O2 Delivery Mode Room Air Allergies/Adverse Reactions: No Known Allergies Allergy (Verified 10/19/18 02:38) Home Medications: Medication Instructions Recorded Spironolactone 100 mg PO BID 08/18/17 Medical Decision Making ED Course/Re-evaluation: Patient with generalized body aches. Normal exam. Patient has had these symptoms for months. Multiple emergency department visits and hospitalizations were negative workups. Patient has an appointment with Neurology in October 30. Plan will be to treat with ibuprofen here and discharge with their follow-up appointment as arranged. There is no evidence of acute medical emergency at this time. Departure - Departure Disposition: Home, Routine, Self-Care Clinical Impression: Myalgia Condition: Good Instructions: Musculoskeletal Pain (ED) Additional Instructions: Take ibuprofen, 600 mg every 8 hr. You may alternate with acetaminophen, 1000 mg every 8 hr. Follow up with Neurology as scheduled on October 30. Referrals: [facility] Lane,. [Clinic] - As per Instructions
[2018-10-19] MEDS ORDERED: IBUPROFEN 600 MG TAB PO ONE (02:57)
== END 2018-10-19 03:05 | disposition home or self-care (01) ==
DX: M79.10 Myalgia, unspecified site (principal); F17.200 Nicotine dependence, unspecified, uncomplicated

== ENCOUNTER → 2018-11-01 | Outpatient (CLI) | payer OTHER, MEDICAID | LOC: FIMAGING 13:37 | PROVIDERS: ATTEND Physician Assistant Medical | DX: R25.3 Fasciculation (principal); R51 Headache; M79.2 Neuralgia and neuritis, unspecified | CPT/HCPCS: 70551-PN ==

== ENCOUNTER → 2018-11-27 | Outpatient (CLI) | payer OTHER, MEDICAID ==
--- NOTE | 2018-11-27 12:25 | CPEEG ---
[f rep st] ELECTROENCEPHALOGRAM DATE OF STUDY: 11/27/2018 INTERPRETATION: Normal EEG during wakefulness and sleep. There were no potentially epileptogenic ab normalities present during the recording. REPORT: This EEG contains 10 Hz alpha activity over the posterior head regions, maximal right. Asym metric alpha activity with higher amplitudes over the right hemisphere is a normal variant. There wa s no abnormal activation at rest, during photic stimulation or hyperventilation. The patient became drowsy and fell asleep during the study. There was no abnormal activation during drowsiness, sleep, or during times of arousal. /[id number]/MODL
== END ==
LOC: FCPNEURO 09:32
PROVIDERS: ATTEND Physician Assistant Medical
DX: M79.2 Neuralgia and neuritis, unspecified (principal); R51 Headache; R25.3 Fasciculation

== ENCOUNTER 2018-12-28 03:02 | Emergency (ER) | payer OTHER, MEDICAID | END 2018-12-28 03:35 | disposition home or self-care (01) ==

== ENCOUNTER 2018-12-30 04:40 | Emergency (ER) | payer OTHER, MEDICAID | END 2018-12-30 06:02 | disposition home or self-care (01) ==

== ENCOUNTER 2019-01-13 21:24 | Emergency (ER) | payer OTHER, MEDICAID | END 2019-01-13 22:54 | disposition home or self-care (01) ==

== ENCOUNTER → 2019-01-15 | Outpatient (CLI) | payer OTHER, MEDICAID | LOC: FIMAGING 17:52 ==

== ENCOUNTER 2019-01-27 02:19 | Emergency (ER) | payer OTHER, MEDICAID | END 2019-01-27 03:39 | disposition home or self-care (01) ==